=== PATIENT | male | born 1995 | race Caucasian/White ===

== ENCOUNTER 2016-03-15 20:22 | Emergency (ER) | payer OTHER ==
[2016-03-15] MEDS ORDERED: ONDANSETRON 4 MG/2 ML VIAL ONE (20:32)
[2016-03-15] MEDS ORDERED: ONDANSETRON 4 MG/2 ML VIAL IVP ONE (20:41)
[2016-03-15] MEDS ORDERED: NS 1,000 ML IV ONE (20:41)
--- NOTE | 2016-03-15 20:41 | EDPHY ---
[id number] HISTORY OF PRESENT ILLNESS: 20-year-old male arrives via ambulance after his friends called 911 after the patient drank 750 cc of Tequila. There are no reports of trauma. The patient is somnolent and is unable provide a history. REVIEW OF SYSTEMS: Review of systems is limited on this patient given his current somnolence status PAST MEDICAL & SURGICAL HISTORY: Unknown medical surgical history due to patient's somnolence status SOCIAL HISTORY: reports of witnessed alcohol use PHYSICAL EXAM (Prior to examination, patient consented to physical exam, hands were washed and my usual and customary physical exam procedures followed) 1) GENERAL: Well-developed, well-nourished, alert and oriented. He is intermittently arousable 2) HEAD: Normocephalic, atraumatic 3) HEENT: Pupils equal, round, reactive to light bilaterally. Sclera anicteric. 4) NECK: Full range of motion, no meningeal signs. 5) LUNGS: Clear auscultation bilaterally, no wheezes, no rhonchi, no retractions. 6) HEART: Regular rate and rhythm, no murmur, no heave, no gallop. 7) ABDOMEN: No guarding, no rebound, no focal tenderness,, 8) MUSCULOSKELETAL: Moving all extremities, no focal areas of tenderness, no obvious trauma. No peripheral edema or discoloration. 9) BACK: no signs of trauma, no visual or palpable abnormality. 10) SKIN: No rash, no petechiae. 11) Psychiatric: Patient is oriented X 3, there is no agitation. DIFFERENTIAL DIAGNOSIS: in no particular order including but not limited to head injury, acute alcohol use, polysubstance abuse - Medical/Surgical History Hx Asthma: No Hx Chronic Respiratory Disease: No Hx Diabetes: No Hx Cardiac Disease: No Hx Renal Disease: No Hx Cirrhosis: No Hx Alcoholism: No Other PMH: unknown - Social History Smoking Status: Unknown if ever smoked Constitutional: Initial Vital Signs Temperature (C) 36.4 C 03/15/16 20:25 Heart Rate 83 03/15/16 20:25 Respiratory Rate 16 03/15/16 20:25 Blood Pressure 105/56 L 03/15/16 20:25 O2 Sat (%) 90 L 03/15/16 20:25 O2 Delivery Mode Room Air O2 (L/minute) 2 Allergies/Adverse Reactions: No Known Allergies Allergy (Unverified 03/15/16 22:10) Home Medications: Medication Instructions Recorded NK [No Known Home Meds] 03/15/16 Medical Decision Making ED Course/Re-evaluation: 840 p.m.: Patient vomited. midnight: Patient revaluated with serial exams and is progressively more sober. Care turned over to Dr Gonzalez at this time. - Data Points Laboratory Results: 03/15/16 20:35 Ethyl Alcohol 390 H mg/dL (0-10) Medications Given: Discontinued Medications Sodium Chloride (Ns) 1,000 mls @ 0 mls/hr IV ONCE ONE PRN Reason: Wide Open Stop: 03/15/16 20:42 Last Admin: 03/15/16 20:44 Dose: 1,000 mls Ondansetron HCl (Zofran) 4 mg IVP EDNOW ONE Stop: 03/15/16 20:42 Last Admin: 03/15/16 20:45 Dose: 4 mg Departure - Departure Disposition: Home, Routine, Self-Care Clinical Impression: Alcohol intoxication Condition: Good Instructions: Alcohol Intoxication (ED) Referrals: NONE *PRIMARY CARE P,. [Primary Care Provider] - As per Instructions
[2016-03-15 20:46] VITALS: RESP 16; TEMP 97.5
[2016-03-15 21:33] LABS: ETHANOL SERUM 390 mg/dL (0-10)
[2016-03-16 04:50] LABS: % IMMATURE GRANULYOCYTES 0.2 % (0.0-1.1); ABSOLUTE IMMATURE GRANULOCYTES 0.02 10^3/uL (0.00-0.10); ADD DIFF? NO; ADD MORPH? NO; ADD SCAN? NO; ATYPICAL LYMPHOCYTE FLAG 0 (0-99); FRAGMENT RBC FLAG 0 (0-99); HEMATOCRIT 51.4 % (40.0-51.0); HEMOGLOBIN 18.6 g/dL (13.7-17.5); LEFT SHIFT FLG 0 (0-99); LIPEMIA HEMOLYSIS FLAG 90 (0-99); MEAN CELL HEMOGLOBIN 31.5 pg (27.9-34.1); MEAN CELL HEMOGLOBIN CONCENTR. 36.2 g/dL (32.4-36.7); PLATELET CLUMPS FLAG 0 (0-99); PLATELET COUNT 325 10^3/uL (150-400); RED BLOOD CELL COUNT 5.91 10^6/uL (4.40-6.38); RED CELL DISTRIBUTION WIDTH 11.5 % (11.5-15.2)
[2016-03-16 04:56] LABS: ANION GAP 19 mEq/L (8-16); CALCIUM 9.5 mg/dL (8.5-10.4); CARBON DIOXIDE 20 mEq/l (22-31); CHLORIDE 106 mEq/L (97-110); CREATININE 0.9 mg/dL (0.7-1.3); GLOMERULAR FILTRATION RATE > 60; GLUCOSE 134 mg/dL (70-100); POTASSIUM 3.7 mEq/L (3.5-5.2); SALICYLATE < 1.0 mg/dL (2.0-20.0); SODIUM 145 mEq/L (134-144)
[2016-03-16 05:13] LABS: ETHANOL SERUM 405 mg/dL (0-10)
[2016-03-16 09:19] VITALS: BP 125/75; PULSE 80; O2SAT 97
== END 2016-03-16 09:26 | disposition home or self-care (01) ==
LOC: EDUNIT#
DX: F10.129 Alcohol abuse with intoxication, unspecified (principal)
CPT/HCPCS: 80305; 96374; G0480; J2405